=== PATIENT | female | born 1980 | race Caucasian/White ===

== ENCOUNTER 2017-04-18 08:23 | Emergency (ER) | payer OTHER ==
[~2017-04-18] VITALS: Ht 160 cm; Wt 90.7 kg
--- NOTE | 2017-04-18 08:54 | NUR ---
mse completed, pt d/c'd , aci/rx x1 given. pt ambulated w/o diff/took all belongings.
[2017-04-18 08:59] VITALS: BP 167/87
== END 2017-04-18 08:55 | disposition home or self-care (01) ==
LOC: ER 08:23
DX: J02.9 Acute pharyngitis, unspecified (principal); I88.9 Nonspecific lymphadenitis, unspecified; E03.9 Hypothyroidism, unspecified
CPT/HCPCS: A4663